=== PATIENT | male | born 1945 | race Caucasian/White ===

== ENCOUNTER 2016-12-29 13:36 | Inpatient (IN) | payer MEDICARE, BC ==
[~2016-12-29] VITALS: Ht 167.6 cm; Wt 75.7 kg
[~2016-12-29 13:36] MED LIST: AMLO10TA2 PO; ASPI-496 PO; ATEN25TA PO; ATOR40TA PO; BUME1TAB21 PO; CEFD300C37 PO; INSU100V8 SQ; MAGN400T26 PO; MYCO500T PO; SILD25TA PO; TACR1CAP2 PO
[2016-12-29] MEDS ORDERED: SODIUM CHLORIDE 0.9% 1,000 ML IV ONE (13:49)
[2016-12-29] MEDS ORDERED: ASPIRIN 81 MG TABLET CHEW PO ONE (14:00)
[2016-12-29] MEDS ORDERED: SODIUM CHLORIDE FLUSH 10ML SYR IVF ONE (14:00)
[2016-12-29] MEDS ORDERED: ERGO500017 PO (14:14)
[2016-12-29] MEDS ORDERED: CARV-39 PO (14:14)
[2016-12-29] MEDS ORDERED: INSU100C SQ-INSULIN (14:14)
[2016-12-29] MEDS ORDERED: CLON0.1T PO (14:14)
[2016-12-29] MEDS ORDERED: HYDR-3343 PO (14:14)
[2016-12-29] MEDS ORDERED: DIAZ10TA4 PO (14:14)
[2016-12-29] MEDS ORDERED: ISOS40TA11 PO (14:17)
[2016-12-29] MEDS ORDERED: TAMS-11 PO (14:17)
[2016-12-29] MEDS ORDERED: NITR0.4T8 SL (14:17)
[2016-12-29 14:32] LABS: ASPARTATE AMINO TRANSFERASE 17 U/L (15-37); BLOOD UREA NITROGEN 41 mg/dL (7-18)
[2016-12-29 14:39] LABS: IS PT STATUS REG ER OR PRE ER? YES
[2016-12-29 14:57] LABS: ANISOCYTOSIS 1+; POIKILOCYTOSIS 1+
[2016-12-29] MEDS ORDERED: HYDROmorphone 1 MG/ML, 1ML ONE ×4 (15:12→18:41)
[2016-12-29] MEDS ORDERED: ASPIRIN 81 MG TABLET CHEW ONE (15:12)
[2016-12-29] MEDS ORDERED: ONDANSETRON 2MG/ML, 2ML ONE (15:12)
[2016-12-29] MEDS: HYDROmorphone 2 MG/ML, 1ML IVPush PRN ×6 (15:17→22:39)
[2016-12-29] MEDS ORDERED: FUROSEMIDE 40 MG/4 ML ONE (16:04)
[2016-12-29 16:37] LABS: PATH.CAST-FLAG NOT PRESENT; SPERM-FLAG NOT PRESENT; SRC-FLAG NOT PRESENT; XTAL-FLAG NOT PRESENT; YLC-FLAG NOT PRESENT
[2016-12-29] MEDS ORDERED: FUROSEMIDE 40 MG/4 ML IV SCH (17:00)
[2016-12-29] MEDS ORDERED: NITROGLYCERIN 0.4 MG BOTTLE (25 TABS) SL PRN (17:30)
[2016-12-29] MEDS ORDERED: DOCUSATE 100 MG CAPSULE PO PRN (17:30)
[2016-12-29] MEDS ORDERED: ERGOCALCIFEROL 50,000 UNIT CAPSULE PO SCH (17:30)
[2016-12-29] MEDS ORDERED: BISACODYL 10 MG SUPP PR PRN (17:30)
[2016-12-29] MEDS ORDERED: ONDANSETRON ODT 4 MG PO PRN (17:30)
[2016-12-29] MEDS ORDERED: ACETAMINOPHEN 325 MG TABLET PO PRN (17:30)
[2016-12-29] MEDS ORDERED: PHARMACY MAY ADJ FOR RENAL FX MC PRN (17:30)
[2016-12-29] MEDS ORDERED: POLYETHYLENE GLYCOL 17 GM PACKET PO PRN (17:30)
[2016-12-29] MEDS ORDERED: GLUCAGON 1 MG IM PRN (18:00)
[2016-12-29] MEDS ORDERED: BENZONATATE 100 MG CAPSULE PO PRN (18:00)
[2016-12-29] MEDS: INSULIN REGULAR 100 UNITS/ML, 3ML VIAL SQ-INSULIN SCH ×2 (18:00→21:50)
[2016-12-29] MEDS ORDERED: DEXTROSE 4 GM TAB.CHEW PO PRN (18:00)
[2016-12-29] MEDS ORDERED: DEXTROSE 50%, 50ML SYRINGE IVPush PRN (18:00)
[2016-12-29] MEDS ORDERED: ALBUTEROL/IPRATROPIUM 2.5MG/0.5MG, 3 ML ONE (18:06)
[2016-12-29 20:56] VITALS: BP 173/75
[2016-12-29] MEDS ORDERED: TACROLIMUS 1 MG CAPSULE PO SCH (21:00)
[2016-12-29] MEDS ORDERED: CARVEDILOL 25 MG TABLET PO SCH (21:00)
[2016-12-29] MEDS: ISOSORBIDE DINITRATE 20 MG TABLET PO SCH (21:00)
[2016-12-29] MEDS: HEPARIN 5,000 UNITS/ML, 1ML SQ SCH (21:00)
[2016-12-29] MEDS: SODIUM CHLORIDE FLUSH 10ML SYR IVF SCH (21:00)
[2016-12-29] MEDS: CARVEDILOL 25 MG TABLET PO SCH (21:19)
[2016-12-29] MEDS: ATORVASTATIN 40 MG TABLET PO SCH (21:19)
[2016-12-29] MEDS: TACROLIMUS 0.5 MG CAPSULE PO SCH (22:06)
[2016-12-29 22:10] LABS: IS PT STATUS REG ER OR PRE ER? NO
[2016-12-30 04:00] VITALS: BP 163/69
[2016-12-30] MEDS: HEPARIN 5,000 UNITS/ML, 1ML SQ SCH ×4 (04:14→21:29)
[2016-12-30] MEDS: ONDANSETRON 2MG/ML, 2ML IVPush PRN ×2 (05:47→11:31)
[2016-12-30 05:51] LABS: ASPARTATE AMINO TRANSFERASE 33 U/L (15-37); BLOOD UREA NITROGEN 49 mg/dL (7-18)
[2016-12-30 06:03] LABS: IS PT STATUS REG ER OR PRE ER? NO
[2016-12-30] MEDS: INSULIN REGULAR 100 UNITS/ML, 3ML VIAL SQ-INSULIN SCH ×4 (07:00→20:27)
[2016-12-30 07:11] VITALS: BP 204/97
[2016-12-30] MEDS: ISOSORBIDE DINITRATE 20 MG TABLET PO SCH ×2 (09:00→20:19)
[2016-12-30] MEDS ORDERED: ATENOLOL 25 MG TABLET PO SCH (09:00)
[2016-12-30] MEDS ORDERED: ASPIRIN 81 MG TABLET EC PO SCH (09:00)
[2016-12-30] MEDS ORDERED: BUMETANIDE 0.25 MG/ML, 4ML IV SCH (09:00)
[2016-12-30] MEDS: SODIUM CHLORIDE FLUSH 10ML SYR IVF SCH ×2 (09:00→20:16)
[2016-12-30 11:32] LABS: IS PT STATUS REG ER OR PRE ER? NO
[2016-12-30] MEDS: INSULIN DETEMIR 100 UNITS/ML, PEN SQ-INSULIN SCH (11:32)
[2016-12-30] MEDS: DOCUSATE 100 MG CAPSULE PO SCH ×2 (11:39→20:19)
[2016-12-30] MEDS ORDERED: DIAZEPAM 5 MG TABLET ONE (11:43)
[2016-12-30] MEDS: ATENOLOL 25 MG TABLET PO SCH (11:47)
[2016-12-30] MEDS: TACROLIMUS 0.5 MG CAPSULE PO SCH ×2 (11:47→20:18)
[2016-12-30] MEDS: ASPIRIN 81 MG TABLET EC PO SCH (11:47)
[2016-12-30] MEDS: MAGNESIUM OXIDE 400 MG TABLET PO SCH (11:47)
[2016-12-30] MEDS: DIAZEPAM 10 MG TABLET PO SCH (11:48)
[2016-12-30] MEDS: CARVEDILOL 25 MG TABLET PO SCH ×2 (11:48→20:18)
[2016-12-30] MEDS: TAMSULOSIN 0.4 MG CAP.ER.24H PO SCH (11:48)
[2016-12-30] MEDS: HYDROcodone/APAP 5/325 TABLET PO PRN (13:06)
[2016-12-30 13:22] VITALS: BP 167/76
[2016-12-30 17:10] LABS: IS PT STATUS REG ER OR PRE ER? NO
[2016-12-30 19:15] VITALS: BP 140/62
[2016-12-30] MEDS: ATORVASTATIN 40 MG TABLET PO SCH (20:18)
[2016-12-30 23:25] LABS: IS PT STATUS REG ER OR PRE ER? NO
[2016-12-31 04:00] VITALS: BP 157/61
[2016-12-31 05:52] LABS: ASPARTATE AMINO TRANSFERASE 31 U/L (15-37); BLOOD UREA NITROGEN 64 mg/dL (7-18)
[2016-12-31 06:35] VITALS: BP 162/66
[2016-12-31] MEDS: MAGNESIUM OXIDE 400 MG TABLET PO SCH (08:30)
[2016-12-31] MEDS: TACROLIMUS 0.5 MG CAPSULE PO SCH ×2 (08:30→21:19)
[2016-12-31] MEDS: DOCUSATE 100 MG CAPSULE PO SCH ×2 (08:30→21:19)
[2016-12-31] MEDS: TAMSULOSIN 0.4 MG CAP.ER.24H PO SCH (08:30)
[2016-12-31] MEDS: ASPIRIN 81 MG TABLET EC PO SCH (08:31)
[2016-12-31] MEDS: CARVEDILOL 25 MG TABLET PO SCH ×2 (08:32→21:00)
[2016-12-31] MEDS: INSULIN DETEMIR 100 UNITS/ML, PEN SQ-INSULIN SCH (08:32)
[2016-12-31] MEDS: ATENOLOL 25 MG TABLET PO SCH (08:32)
[2016-12-31] MEDS: SODIUM CHLORIDE FLUSH 10ML SYR IVF SCH ×2 (08:35→21:18)
[2016-12-31] MEDS: DIAZEPAM 10 MG TABLET PO SCH ×2 (08:35→22:33)
[2016-12-31] MEDS: ISOSORBIDE DINITRATE 20 MG TABLET PO SCH ×2 (08:35→19:46)
[2016-12-31] MEDS: INSULIN REGULAR 100 UNITS/ML, 3ML VIAL SQ-INSULIN SCH ×4 (08:39→21:20)
[2016-12-31] MEDS ORDERED: AZITHROMYCIN 500 MG TABLET PO ONE (09:30)
[2016-12-31] MEDS: ONDANSETRON 2MG/ML, 2ML IVPush PRN (11:39)
[2016-12-31] MEDS: HYDROcodone/APAP 5/325 TABLET PO PRN ×2 (11:39→22:32)
[2016-12-31] MEDS: HEPARIN 5,000 UNITS/ML, 1ML SQ SCH ×2 (13:43→21:00)
[2016-12-31 13:51] VITALS: BP 145/57
[2016-12-31 18:52] VITALS: BP 203/84
[2016-12-31 19:44] VITALS: BP 191/95
[2016-12-31 21:17] VITALS: BP 161/70
[2016-12-31] MEDS: ATORVASTATIN 40 MG TABLET PO SCH (21:19)
[2016-12-31] MEDS ORDERED: DIAZEPAM 5 MG TABLET ONE (22:27)
[2017-01-01 00:48] VITALS: BP 119/59
[2017-01-01] MEDS: HEPARIN 5,000 UNITS/ML, 1ML SQ SCH (05:00)
[2017-01-01 06:22] VITALS: BP 127/60
[2017-01-01] MEDS: ASPIRIN 81 MG TABLET EC PO SCH (06:23)
[2017-01-01] MEDS: INSULIN REGULAR 100 UNITS/ML, 3ML VIAL SQ-INSULIN SCH ×2 (07:00→11:00)
[2017-01-01] MEDS: TACROLIMUS 0.5 MG CAPSULE PO SCH (08:54)
[2017-01-01] MEDS: ISOSORBIDE DINITRATE 20 MG TABLET PO SCH (08:56)
[2017-01-01] MEDS: MAGNESIUM OXIDE 400 MG TABLET PO SCH (08:57)
[2017-01-01] MEDS: CARVEDILOL 25 MG TABLET PO SCH (08:57)
[2017-01-01] MEDS: DOCUSATE 100 MG CAPSULE PO SCH (08:58)
[2017-01-01] MEDS: TAMSULOSIN 0.4 MG CAP.ER.24H PO SCH (08:58)
[2017-01-01] MEDS: INSULIN DETEMIR 100 UNITS/ML, PEN SQ-INSULIN SCH (08:59)
[2017-01-01] MEDS ORDERED: AZITHROMYCIN 250 MG TABLET PO SCH (09:00)
[2017-01-01] MEDS ORDERED: BUMETANIDE 1 MG TABLET PO SCH (09:00)
[2017-01-01] MEDS: SODIUM CHLORIDE FLUSH 10ML SYR IVF SCH (09:00)
[2017-01-01] MEDS: DIAZEPAM 10 MG TABLET PO SCH (09:00)
[2017-01-01 09:40] LABS: BLOOD UREA NITROGEN 67 mg/dL (7-18)
[2017-01-01 11:25] LABS: DIFF TOTAL CELLS COUNTED 100 CELL DIFF
[2017-01-01 12:13] LABS: ANISOCYTOSIS 1+; VERIFY COUNTS? YES
[2017-01-01] MEDS ORDERED: AZIT250T89 PO (13:01)
[2017-01-01] MEDS ORDERED: GUAI1TAB PO (13:01)
[2017-01-01] MEDS ORDERED: HYDR-3240 PO (13:01)
[2017-01-01] MEDS: HYDROcodone/APAP 5/325 TABLET PO PRN (15:23)
== END 2017-01-01 15:55 | disposition home or self-care (01) | DRG 291 ==
LOC: ED 17:26 → EDIP 17:27 → ED 18:11 → 5SO 19:15
PROVIDERS: ADMIT Internal Medicine; ATTEND Internal Medicine
DX: I13.2 Hypertensive heart and chronic kidney disease with heart failure and with stage 5 chronic kidney disease, or end stage renal disease (principal); I50.43 Acute on chronic combined systolic (congestive) and diastolic (congestive) heart failure; N18.6 End stage renal disease; D68.61 Antiphospholipid syndrome; E87.2 Acidosis; J44.0 Chronic obstructive pulmonary disease with (acute) lower respiratory infection; J96.10 Chronic respiratory failure, unspecified whether with hypoxia or hypercapnia; R17 Unspecified jaundice; Z94.0 Kidney transplant status; Z99.11 Dependence on respirator [ventilator] status; D63.8 Anemia in other chronic diseases classified elsewhere; D69.59 Other secondary thrombocytopenia; E11.22 Type 2 diabetes mellitus with diabetic chronic kidney disease; I25.10 Atherosclerotic heart disease of native coronary artery without angina pectoris; E78.5 Hyperlipidemia, unspecified; G47.33 Obstructive sleep apnea (adult) (pediatric); I25.2 Old myocardial infarction; I27.2 Other secondary pulmonary hypertension; I44.7 Left bundle-branch block, unspecified; I65.29 Occlusion and stenosis of unspecified carotid artery; J20.9 Acute bronchitis, unspecified; Z79.4 Long term (current) use of insulin; Z80.1 Family history of malignant neoplasm of trachea, bronchus and lung; Z82.49 Family history of ischemic heart disease and other diseases of the circulatory system; Z85.828 Personal history of other malignant neoplasm of skin; Z87.891 Personal history of nicotine dependence; Z90.49 Acquired absence of other specified parts of digestive tract; Z95.1 Presence of aortocoronary bypass graft; Z95.5 Presence of coronary angioplasty implant and graft; Z99.2 Dependence on renal dialysis
CPT/HCPCS: 36415; 71010; 71020; 80048; 80053; 81001; 82962; 83605; 83735; 83880; 84100; 84145; 84484; 85025; 85610; 87040; 87070; 87205; 93005; 93306; 94640; 96374; 96375; 96376; J1170; J1815; J1940; J2405; J7507; J7517